=== PATIENT | female | born 1985 | race Caucasian/White ===

== ENCOUNTER 2022-05-30 21:51 | Inpatient (IN) | payer MEDICAID ==
[~2022-05-30] VITALS: Ht 167.6 cm; Wt 55.3 kg
--- NOTE | 2022-05-30 21:59 | NUR ---
LORAINE PIERRE TO BED #8
[2022-05-30 22:01] VITALS: BP 142/78
--- NOTE | 2022-05-30 23:00 | NUR ---
Patient received on bed lying comfortably and awake. Alert, oriented x4 and non-verbal. Patient able to communicate using her phone. No acute distress. No complaints of pain or discomfort. Respirations even and unlabored.
[2022-05-30] MEDS ORDERED: WATER STERILE IV SCH (23:35)
[2022-05-30] MEDS ORDERED: METHYLPREDNISOLONE SS IV SCH (23:35)
[2022-05-30] MEDS ORDERED: NACL 0.9% 2,000 ML IV ONE (23:35)
[2022-05-30 23:52] LABS: BASOPHILS % (AUTO) 0.5 % (0.0-2.0); EOSINOPHILS # (AUTO) 0.1 K/uL (0-0.4); EOSINOPHILS % (AUTO) 1.5 % (0.0-4.0); LYMPHOCYTES # (AUTO) 1.9 K/uL (2.5-16.5); LYMPHOCYTES % (AUTO) 22.5 % (20.5-51.1); MEAN CORPUSCULAR HEMOGLOBIN 24 pg (27-31); MEAN CORPUSCULAR HGB CONC 32 g/dL (33-37); MEAN CORPUSCULAR VOLUME 73.9 fL (80-94); MONOCYTES # (AUTO) 0.5 K/uL (0.8-1.0); MONOCYTES % (AUTO) 6.3 % (1.7-9.3); NEUTROPHILS # (AUTO) 5.9 K/uL (1.8-7.7); NEUTROPHILS % (AUTO) 69.2 % (42.2-75.2); PLATELET COUNT (AUTO) 310 K/uL (140-450); RED BLOOD CELL COUNT(AUTO) 4.59 MIL/uL (4.20-5.40); RED CELL DISTRIBUTION WIDTH 19.3 % (11.6-13.7); WHITE BLOOD COUNT (AUTO) 8.5 K/uL (4.8-10.8)
[2022-05-31 00:12] LABS: ALBUMIN 3.9 g/dL (3.4-5.0); ANION GAP 11.9 (8-16); CARBON DIOXIDE 26.3 mmol/L (21-32); CREATININE 0.6 mg/dL (0.6-1.3); POTASSIUM 3.2 mmol/L (3.5-5.1); TOTAL BILIRUBIN 0.6 mg/dL (0.0-1.0)
--- NOTE | 2022-05-31 02:31 | NUR ---
Patient appears to be resting comfortably in bed with eyes closed. Vital Signs within normal limits. Respirations even and unlabored. Safety measures are in place.
--- NOTE | 2022-05-31 04:00 | NUR ---
Patient seen on bed lying comfortably and asleep. No acute distress. No signs of pain or discomfort. Respirations even and unlabored.
[2022-05-31] MEDS ORDERED: methylPREDNISolone SS 40 MG in WATER STERILE 1 ML IV SCH (06:00)
[2022-05-31] MEDS ORDERED: methylPREDNISolone SS 40 MG/ML VIAL ONE (06:34)
[2022-05-31] MEDS ORDERED: WATER STERILE 10 ML MC ONE (06:34)
[2022-05-31] MEDS ORDERED: MORPHINE SULFATE 2 MG/ML SYR IVP PRN (07:20)
[2022-05-31] MEDS ORDERED: LORazepam 2 MG/ML VIAL IVP PRN (07:20)
[2022-05-31] MEDS ORDERED: ONDANSETRON 4 MG/2 ML VIAL IVP PRN (07:20)
[2022-05-31] MEDS ORDERED: ACETAMINOPHEN 325 MG TAB PO PRN (07:20)
[2022-05-31] MEDS ORDERED: MAG SULF 2000 MG/WATER PREMIX 50 ML IV PRN (07:20)
[2022-05-31] MEDS ORDERED: POTASSIUM CHLORIDE 10 MEQ TABER PO PRN (07:20)
[2022-05-31] MEDS ORDERED: DOCUSATE SODIUM 100 MG GELCAP PO PRN (07:20)
[2022-05-31] MEDS ORDERED: ZOLPIDEM 10 MG TAB PO PRN (07:20)
--- NOTE | 2022-05-31 07:20 | NUR ---
Recieved report from Night RN for transfer of care.
--- NOTE | 2022-05-31 07:38 | NUR ---
Dr. Ferreira, admitting physician, evaluating patient at bedside.
[2022-05-31 08:00] VITALS: BP 95/58
--- NOTE | 2022-05-31 08:12 | NUR ---
Patient will be admitted to care of Dr. Ferreira. Admited to Med-Surg. Will go to room 110-A. Belongings list completed. Report to NICKO Curry.
[2022-05-31] MEDS: DEXT 5% / NACL 0.9% 1,000 ML IV SCH (08:30)
--- NOTE | 2022-05-31 08:30 | NUR ---
RECEIVED REPORT FROM ER NURSE. PT A/O X4. PT UNABLE TO SPEAK AT THIS TIME BUT ABLE TO TYPE. NO SOB OR RESPIRATORY DISTRESS. RR EVEN & UNLABORED. RA. O2 SATURATION @ 99%. OBSERVED PT WITH STEADY GAIT. L HAND #22 SL. LAST BM 05/29/22. DENIES PAIN AT THIS TIME. ORIENTED PT TO ROOM. HYGIENIC SUPPLIES PROVIDED. NEEDS ALL MET AT THIS TIME. ALL SAFETY MEASURES IN PLACE. WILL FOLLOW-UP WITH MD REGARDING POTASSIUM LEVEL AND DIET ORDER.
--- NOTE | 2022-05-31 09:13 | NUR ---
PATIENT HAS BEEN SCREENED AND CATEGORIZED MODERATE NUTRITION RISK. PATIENT WILL BE SEEN WITHIN 3-5 DAYS OF ADMISSION. REVIEWED BY WILFREDO THORNTON RD Addendum: 05/31/22 at [address] [facility] REFERRAL RECEIVED ON 05/31/22 FOR DYSPHAGIA. PATIENT HAS BEEN RE-SCREENED HIGH RISK AND WILL BE SEEN WITHIN 1-2 DAYS OF RECEIVING THE [facility] REFERRAL. 06/01/22-06/02/22
[2022-05-31] MEDS ORDERED: POTASSIUM CHLORIDE 40 MEQ, LIDOCAINE 1% 25 MG in NACL 0.9% 250 ML IV SCH (10:30)
--- NOTE | 2022-05-31 10:30 | NUR ---
SS SERVICE ORDER REQUEST MET WITH PT AT BEDSIDE AND PROVIDED PT WITH EMERGENCY ASSISTANCE RESOURCES, HOMELESS RESOURCES, LOW COST HOUSING RESOURCES AND LOW COST CLINIC RESOURCES. PT REPORTS RECENTLY MOVING TO [facility] FROM [facility] AND IS IN TRANSITION IN MOVING OVER ALL BENEFITS. PT WAS PROVIDED WITH [facility] PHONE NUMBER TO INQUIRE ON [facility] BENEFITS AND MEDICAL BENEFITS TRANSITION. ANSWERED ALL PTS QUESTIONS AND PT ACCEPTED ALL RESOURCES PROVIDED.
--- NOTE | 2022-05-31 11:30 | NUR ---
1030: KRIDER WITH LIDOCAINE STARTED ON L HAND #22. 1100: PT C/O PAIN. L HAND NOTED WITH REDNESS. IVF STOPPED, FLUSHED WITH NS. PT REFUSING KRIDER. 1130: REASSESSED SITE, NO REDNESS NOTED. PT DENIES PAIN AT SITE.
[2022-05-31] MEDS: methylPREDNISolone SS 40 MG/ML VIAL IVP SCH ×3 (12:23→17:44)
--- NOTE | 2022-05-31 13:24 | NUR ---
PER DR. TREVINO CHECK NIF AND VC (PEAKFLOW) BID. REPORT TO MD IF TREND OF PARAMETERS WORSEN. MONITOR MYASTHENIA GRAVIS.
--- NOTE | 2022-05-31 14:00 | NUR ---
INITIAL NIF 1)-25. 2)-35. 3)-40. NO VC AVAILABLE, SO PEAK-FLOW METER WAS USED. PT HAS LEAK ON SIDES OF MOUTH DUE TO NOT BEING ABLE TO CLOSE MOUTH AROUND METER. HOWEVER, SHE HAS A STRONG EXHALE WHEN PERFORMING THE MEASUREMENT. 1)250 ML. 2)290 ML. 3)300ML. FOLLOWS COMMANDS. WILL CONTINUE TO MONITOR. NIF AND VC/PEAK-FLOW BID. START TIME 1999. IF TREND OF PARAMETERS STARTS TO WORSEN, REPORT TO DR. TREVINO.
[2022-05-31 16:00] VITALS: BP 107/63
--- NOTE | 2022-05-31 16:00 | NUR ---
NEW IV RESTART ON R HAND #22 BY NICKO JERNIGAN. D5NS @ 60 ML/HR RESTARTED.
--- NOTE | 2022-05-31 18:46 | NUR ---
PT REQUESTING SOFT DIET FOR TOMORROW WITH ENSURE MAX. WILL ENDORSE TO [facility] TO CONTACT MD FOR BREAKFAST ORDER.
--- NOTE | 2022-05-31 19:21 | NUR ---
BEDSIDE REPORT GIVEN TO [facility] NURSE FOR CONTINUITY OF CARE.
--- NOTE | 2022-05-31 19:22 | NUR ---
RECEIVED ENDORSEMENT FROM MAKAYLA MAHARAJ (REGISTRY), PATIENT WAS STABLE DURING SHIFT REPORT. PATIENT IS IN BED AWAKE. NURSING OBSERVED CHEST RISING AND FALLING WITHOUT INCIDENT. PATIENT WAS RESPONSIVE AND REQUESTED TO HAVE A CHANGED DIET BECAUSE SHE IS HUNGRY. NO NOTED S/S OF PAIN/DISCOMFORT. NO NOTED S/S OF RESPIRATORY DISTRESS. KEPT CLEAN AND DRY AT THIS TIME. SIDE RAILS UP. HEAD OF BED ELEVATED. CALL LIGHT WITHIN REACH FOR ASSISTANCE. [id number]
--- NOTE | 2022-05-31 19:23 | NUR ---
Patient's Plan of Care was discussed and reviewed with JAMES: YESENIA
[2022-05-31 20:00] VITALS: BP 113/67
--- NOTE | 2022-05-31 20:49 | NUR ---
NIF WAS -45 (3x) PEAKFLOW WAS 250, 270, AND 300ML SPO2 WAS 97% ON RA.
--- NOTE | 2022-05-31 23:32 | NUR ---
PATIENT INQUIRED ABOUT NUTS TO EAT. WAS INFORMED WE DO NOT CARRY THAT IN THE KITCHEN. MD WILL BE NOTIFY OF HER REQUEST FOR KETO/CELIAC SOFT DIET WITH SOFT BEEF THE ONLY PROTEIN. [id number]
[2022-06-01] MEDS: methylPREDNISolone SS 40 MG/ML VIAL IVP SCH ×3 (00:30→12:00)
--- NOTE | 2022-06-01 01:01 | NUR ---
PATIENT IN ROOM ASLEEP AT THIS TIME. NO NOTED S/S OF PAIN/DISTRESS. NO RESPIRATORY DISTRESS. [id number]
[2022-06-01] MEDS: DEXT 5% / NACL 0.9% 1,000 ML IV SCH (02:06)
[2022-06-01 04:00] VITALS: BP 103/71
--- NOTE | 2022-06-01 04:36 | NUR ---
PATIENT IN ROOM ASLEEP AT THIS TIME. NO NOTED S/S OF PAIN/DISTRESS. NO RESPIRATORY DISTRESS. [id number]
--- NOTE | 2022-06-01 07:06 | NUR ---
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 will continue to monitor
--- NOTE | 2022-06-01 07:10 | NUR ---
ENDORSED PATIENT CARE TO VISHNU RN (REGISTRY), PATIENT WAS STABLE DURING CHANGE OF SHIFT. MNURPH1
[2022-06-01 07:17] LABS: HEMATOCRIT 34.6 % (36-48); HEMOGLOBIN 11.1 g/dL (12.0-16.0); LYMPHOCYTES # (AUTO) 0.6 K/uL (2.5-16.5); MEAN CORPUSCULAR HEMOGLOBIN 24 pg (27-31); MEAN CORPUSCULAR HGB CONC 32 g/dL (33-37); MEAN CORPUSCULAR VOLUME 74.1 fL (80-94); MONOCYTES # (AUTO) 0.1 K/uL (0.8-1.0); MONOCYTES % (AUTO) 1.4 % (1.7-9.3); NEUTROPHILS # (AUTO) 9.8 K/uL (1.8-7.7); NEUTROPHILS % (AUTO) 92.6 % (42.2-75.2); PLATELET COUNT (AUTO) 312 K/uL (140-450); RED BLOOD CELL COUNT(AUTO) 4.66 MIL/uL (4.20-5.40); RED CELL DISTRIBUTION WIDTH 18.8 % (11.6-13.7); WHITE BLOOD COUNT (AUTO) 10.6 K/uL (4.8-10.8)
[2022-06-01 07:45] LABS: ANION GAP 12.5 (8-16); CREATININE 0.6 mg/dL (0.6-1.3); POTASSIUM 4.5 mmol/L (3.5-5.1)
--- NOTE | 2022-06-01 09:07 | NUR ---
endorse the patient to [facility] for change of assignment for continuity of care
--- NOTE | 2022-06-01 09:15 | NUR ---
RECEIVED REPORT FROM NICKO MARES FOR CONTINUITY OF CARE. PT STABLE AT THIS TIME.
[2022-06-01] MEDS ORDERED: PRED20TA5 PO (10:22)
--- NOTE | 2022-06-01 12:20 | NUR ---
STABLE NO PULMONARY DISTRESS NOTED EQUAL CHEST RISE GOOD AERATION THROUGHOUT BILATERAL LUNG PHAN AIRWAY PATENT NIF 40 l/m, 45 l/m, 35 l/m; PEAK FLOW 300 l/m, 310 l/m, 330 l/m
[2022-06-01 13:53] VITALS: BP 103/71
== END 2022-06-01 15:05 | disposition home or self-care (01) | DRG 42 ==
LOC: MED 21:51 → MMU 21:59 → MTU 21:59 → MMU 05-31 00:46 → MTU 05-31 07:46
PROVIDERS: ADMIT Family Medicine; ATTEND Family Medicine
DX: G70.01 Myasthenia gravis with (acute) exacerbation (principal); E83.51 Hypocalcemia; D64.9 Anemia, unspecified; M62.81 Muscle weakness (generalized); E87.6 Hypokalemia; R13.10 Dysphagia, unspecified; Z20.822 Contact with and (suspected) exposure to COVID-19
CPT/HCPCS: 36415; 71045; 80048; 80053; 83735; 85025; 87081; 96361; 96374; 99291; 99292; J2001; J2920; J3480; J7030; Q0092